=== PATIENT | female | born 1970 ===

== ENCOUNTER 2018-03-30 07:43 | Day surgery (SDC) | payer BC ==
[2018-03-26 10:18] VITALS: BMI 38.4
[2018-03-30] MEDS ORDERED: Lidocaine Hydrochloride 10 ML INJ ONE (11:40)
[2018-03-30] MEDS ORDERED: Nitroglycerin 50mg in D5W 50 MG/250 ML BOTTLE IV ONE (11:42)
[2018-03-30] MEDS ORDERED: Verapamil 2 ML ONE (11:42)
[2018-03-30] MEDS ORDERED: Midazolam 2 MG/2 ML VIAL ONE (11:48)
--- NOTE | 2018-04-01 22:27 | CARDCATH ---
PROCEDURE DATE: 03/30/2018 PROCEDURES: 1. Left heart catheterization. 2. Coronary angiogram. PERFORMING PHYSICIAN: Martínez Mcguire MD CLINICAL INDICATIONS: 1. Chest pain and abnormal stress test. 2. Hypertension. 3. History of coronary artery disease and stents. 4. Hyperlipidemia. 5. Diabetes. DESCRIPTION OF PROCEDURE: After informed consent, the patient was prepped and draped in the usual sterile fashion. Lidocaine 2% was given in the right hip for local anesthesia. Using micropuncture technique, a 6-Beninese sheath was introduced into the right radial artery. A JR4 6-Beninese diagnostic catheter was crossed into left ventricle across aortic valve. LV end diastolic pressure was measured. Contrast was injected and LV angiogram was done. The catheter was pulled back. Gradient across the aortic valve was measured. Then, the same catheter was engaged into right coronary artery. Contrast was injected and right coronary angiogram was done. Then the catheter was exchanged to 6-Beninese [place] catheter. The catheter was engaged into the left main coronary artery. Contrast was injected and left coronary angiogram was done. The patient tolerated the procedure well. Post-procedure, Terumo radial band applied to right wrist with excellent hemostasis. FINDINGS: 1. Left main coronary artery is patent. 2. LAD and diagonal branches are patent. Prior stent in the LAD is patent. 3. Left circumflex is small and patent. 4. Right coronary artery is dominant. Distal right coronary artery has an in-stent 85%stenosis. PDA and PLV branches are patent. IMPRESSION: 1. Right coronary artery in-stent restenosis. 2. Normal left ventricular systolic function. Left ventricular ejection fractions are approximately 60%. EDP is 14. RECOMMENDATIONS: Recommend intervention of the right coronary artery. Martínez Mcguire MD
[2018-04-02 12:11] VITALS: RESP 16; O2SAT 100
== END 2018-03-30 16:00 | disposition home or self-care (01) ==
LOC: C.CATHLAB 07:43
PROVIDERS: ATTEND Internal Medicine Cardiovascular Disease
DX: T82.858A Stenosis of other vascular prosthetic devices, implants and grafts, initial encounter (principal); I25.10 Atherosclerotic heart disease of native coronary artery without angina pectoris; E11.9 Type 2 diabetes mellitus without complications; E78.5 Hyperlipidemia, unspecified; I10 Essential (primary) hypertension; Z87.891 Personal history of nicotine dependence; R94.39 Abnormal result of other cardiovascular function study; Z95.5 Presence of coronary angioplasty implant and graft; Y71.2 Prosthetic and other implants, materials and accessory cardiovascular devices associated with adverse incidents
CPT/HCPCS: 82948; 84703; 93458; 94770; 99152; 99153; C1769; C1887; C1894; J1644; J2001; J2250; J3010